=== PATIENT | male | born 1960 | race Caucasian/White ===

== ENCOUNTER → 2018-12-16 | Outpatient (CLI) | payer BC ==
[2018-12-16 09:08] LABS: Basophils # (A) 0.1 k/uL (0-0.2); Basophils % (A) 1 %; Eosinophils # (A) 0.1 k/uL (0-0.7); Eosinophils % (A) 1 %; HCT 40.3 % (39.0-53.0); HGB 13.6 gm/dL (13.0-17.5); Lymphocytes # (A) 1.8 k/uL (1.0-4.8); Lymphocytes % (A) 22 %; MCH 32.6 pg (25.0-35.0); MCHC 33.8 g/dL (31.0-37.0); MCV 96.3 fL (80.0-100.0); Mean Platelet Volume 7.1; Monocytes # (A) 0.5 k/uL (0-1.0); Monocytes % (A) 6 %; Neutrophils # (A) 5.9 k/uL (1.3-7.7); Neutrophils % (A) 70 %; Platelet Count 341 k/uL (150-450); RBC 4.18 m/uL (4.30-5.90); WBC 8.5 k/uL (3.8-10.6)
[2018-12-16 14:13] LABS: Erythrocyte Sedimentation Rate 26 mm/hr (0-15)
[2018-12-16 16:15] LABS: African American GFR (CKD) 114.1 (60.0-200.0); Albumin 4.3 g/dL (3.80-4.90); Albumin/Globulin Ratio 2.26 (1.60-3.17); Anion Gap 8.9 mmol/L (4.00-12.00); BUN/Creat Ratio 22.5 Ratio (12.00-20.00); Calcium 9.4 mg/dL (8.7-10.3); Carbon Dioxide 26.1 mmol/L (21.6-31.8); Chol/HDL Ratio 3.23; Globulin 1.9 g/dL (1.6-3.3); LDL Cholesterol,Calculated 65.8 mg/dL (0.0-131.0); Rheumatoid Factor <4 IU/mL (0-15); Total Bilirubin 0.3 mg/dL (0.2-1.2); Total Protein 6.2 g/dL (6.2-8.2); Uric Acid 5.6 mg/dL (3.7-8.7); VLDL Calculation 12.2 mg/dL (5.00-40.00)
[2018-12-18 09:41] LABS: Cyclic Citrull Pep IgG Unit 0.5 U/mL; Cyclic Citrullinated Pep IgG NEGATIVE (NEGATIVE)
[2018-12-19 09:51] LABS: Lyme IgG/IgM 0.17 Index
[2018-12-19 11:40] LABS: West Nile Virus IgM Antibody 0.03 INDEX (<0.90)
== END ==
LOC: LABWHC1 08:35
PROVIDERS: ATTEND Family Medicine
DX: Z00.00 Encounter for general adult medical examination without abnormal findings (principal); I10 Essential (primary) hypertension; Z79.899 Other long term (current) drug therapy
CPT/HCPCS: 36415; 80053; 80061; 84443; 84550; 85025; 85652; 86200; 86431; 86618; 86788; 86789

== ENCOUNTER → 2019-01-17 | Outpatient (CLI) | payer BC ==
--- NOTE | 2019-01-17 10:51 | CTL ---
EXAMINATION TYPE: CT Low Dose Lung DATE OF EXAM ORDERED: 01/17/2019 HISTORY: Personal history tobacco use. Lung cancer screening CT DLP: [address] CTDI: 2.07 mGy Automated exposure control for dose reduction was used. SCREENING VISIT: 1 COMPARISON: CTA of the chest 05/29/2013 TECHNIQUE: Low dose computed tomography scan was performed through the chest at 1 mm thick sections a nd reconstructed images in the coronal plane at [address] DIAGNOSTIC QUALITY: Satisfactory FINDINGS: LUNG NODULES: None. There is some bilateral subpleural nodularity present in the upper and lower lobes, less than 5 mm in size. LUNGS: COPD: Severity: Mild Fibrosis: Severity: Mild Lymph nodes: Not enlarged Other findings: RIGHT PLEURAL SPACE: Effusion: None Calcification: None Thickening: None Pneumothorax: None LEFT PLEURAL SPACE: Effusion: None Calcification: None Thickening: None Pneumothorax: None HEART: Heart Size: Small Coronary calcification: Moderate Pericardial effusion: None OTHER FINDINGS: Upper abdomen: Unremarkable Bony thorax: Within normal limits Supraclavicular region: Unremarkable Other: IMPRESSION: Benign FOLLOW UP CT CHEST RECOMMENDATION: [address] LUNG RAD: 2
== END | disposition home or self-care (01) ==
LOC: RADCTMAIN 07:29
PROVIDERS: ATTEND Internal Medicine Geriatric Medicine
DX: Z12.2 Encounter for screening for malignant neoplasm of respiratory organs (principal); Z87.891 Personal history of nicotine dependence

== ENCOUNTER → 2022-10-26 | Outpatient (CLI) | payer BC ==
[2022-10-26 11:39] LABS: Chol/HDL Ratio 4.66 Ratio; LDL Cholesterol,Calculated 111.9 mg/dL (0.0-131.0); VLDL Calculation 19.34 mg/dL (5.00-40.00)
== END | disposition home or self-care (01) ==
LOC: LABWHC1 07:16
PROVIDERS: ATTEND Internal Medicine Interventional Cardiology
DX: E78.5 Hyperlipidemia, unspecified (principal)
CPT/HCPCS: 36415; 80061

== ENCOUNTER → 2022-12-24 | Outpatient (CLI) | payer BC ==
[2022-12-24 11:03] LABS: BUN/Creat Ratio 17.22 Ratio (12.00-20.00); Blood Urea Nitrogen 15.5 mg/dL (9.0-27.0); Calcium 9.6 mg/dL (8.7-10.3); Carbon Dioxide 24.9 mmol/L (21.6-31.8); Chloride 104 mmol/L (96-109); Chol/HDL Ratio 3.81 Ratio; Glucose 103 mg/dL (70-110); LDL Cholesterol,Calculated 100.7 mg/dL (0.0-131.0); Potassium 4.3 mmol/L (3.5-5.5); Sodium 139 mmol/L (135-145)
== END | disposition home or self-care (01) ==
LOC: LABWHC1 06:54
PROVIDERS: ATTEND Internal Medicine Interventional Cardiology
DX: I10 Essential (primary) hypertension (principal); E78.5 Hyperlipidemia, unspecified
CPT/HCPCS: 36415; 80048; 80061